=== PATIENT | male | born 1935 | race Two or more races ===

== ENCOUNTER 2021-07-24 23:22 | Emergency (ER) | payer MEDICARE, OTHER ==
[~2021-07-24] VITALS: Ht 167.6 cm; Wt 72.6 kg
[2021-07-25 02:27] VITALS: BP 176/75
== END 2021-07-25 03:01 | disposition home or self-care (01) ==
LOC: EDBD 23:22 → ER 23:22
DX: R33.9 Retention of urine, unspecified (principal); N40.0 Benign prostatic hyperplasia without lower urinary tract symptoms; J44.9 Chronic obstructive pulmonary disease, unspecified; E11.9 Type 2 diabetes mellitus without complications; E78.5 Hyperlipidemia, unspecified; I10 Essential (primary) hypertension; Z76.0 Encounter for issue of repeat prescription